=== PATIENT | female | born 1980 | race Caucasian/White ===

== ENCOUNTER 2020-08-01 14:31 | Emergency (ER) | payer OTHER ==
[2020-08-01 14:47] VITALS: BMI 26.2
[2020-08-01] MEDS ORDERED: FAMOTIDINE 20 MG/50 ML IVPB 20 MG/50 ML MG IVPB ONE ×2 (15:26→16:11)
[2020-08-01] MEDS ORDERED: SODIUM CHLORIDE 1,000 ML IV STA (15:26)
[2020-08-01] MEDS ORDERED: ONDANSETRON 4 MG/2 ML VIAL IVPUSH ONE (15:27)
--- NOTE | 2020-08-01 15:38 | PDOC ---
History of Present Illness - General Chief Complaint: Pain Stated Complaint: 3 MONTH PA/FALL Time Seen by Provider: 08/01/20 15:19 History Source: Patient Exam Limitations: No Limitations - History of Present Illness Initial Comments: 08/01/20 15:33 Patient is a 40-year-old female with no past medical history who presents to the ED with complaint of epigastric abdominal pain after a fall today. The patient states she fell on the ground while walking a dog. She did not hit her abdomen on anything.. She also states that she took a test this morning after not having a period since April 26, 2020 and found that that she was . She states she has not had any vaginal bleeding or pelvic pain. She denies any fevers or chills. She has not taken anything for symptoms. She was concerned about the so she came to the ED for evaluation. She denies hitting her head or any LOC. She states she is allergic to penicillin. Past History - Medical History Allergies/Adverse Reactions: Allergies Allergy/AdvReac Type Severity Reaction Status Date / Time Penicillins Allergy Verified 08/01/20 14:47 COPD: No - Reproductive History Is Patient Now?: Yes - Psycho-Social/Smoking History Smoking History: Never smoked Review of Systems - Review of Systems Comments:: 08/01/20 15:36 - Review of Systems Able to Perform ROS?: Yes Constitutional: No: Fever, Chills, Loss of Appetite, Night Sweats, Weakness HEENTM: No: Eye Pain, Vision changes, Ear Pain, Throat Pain, Throat Swelling, Mouth Pain, Difficulty Swallowing Respiratory: No: Cough, Shortness of Breath, Wheezing, Sputum Production Cardiac (ROS): No: Chest Pain, Chest Tightness, Palpitations, Irregular Heart Beat, Edema ABD/GI: No: Nausea, Vomiting, Diarrhea; positive: Epigastric abdominal pain, newly diagnosed LMP 04/26/2020 : No Dysuria, No Hematuria, No Frequency, No Urgency, No Vaginal Discharge/Pain, No Penile Discharge/Pain Musculoskeletal: No: Muscle Pain, Back Pain, Joint Pain, Muscle Weakness, Neck Pain Integumentary: No: Lesions, Rash Neurological: No: Headache, Numbness, Tingling, Weakness, Speech Difficulties *Physical Exam - Vital Signs Last Vital Signs Temp Pulse Resp BP Pulse Ox 87 18 123/82 100 08/01/20 14:45 08/01/20 14:45 08/01/20 14:45 08/01/20 14:45 - Physical Exam 08/01/20 15:37 - Physical Exam General Appearance: Nourished, Appropriately Dressed, No Distress HEENT: EOMI, Normal Voice, Hearing Grossly Normal Neck: Supple, No Lymphadenopathy (R), No Lymphadenopathy (L), No Rigidity, No Decreased range of motion Respiratory/Chest: Lungs Clear, Normal Breath Sounds. No Respiratory Distress, No Accessory Muscle Use Cardiovascular: Regular Rhythm, Regular Rate, S1, S2 Gastrointestinal/Abdominal: Normal Bowel Sounds, Soft. Moderate epigastric abdominal tenderness to palpation. Negative Estrada sign. No lower abdominal tenderness or pelvic tenderness to palpation. No rebound/guarding/rigidity. Abdomen nontympanitic. No CVA tenderness bilaterally. Musculoskeletal: Normal Inspection. No Decreased Range of Motion Extremity: Normal Capillary Refill, Normal Inspection Integumentary: Normal Color, Dry. No Rash Neurologic: maid housekeeper II-XII NML intact, Fully Oriented, Alert, Normal Mood/Affect, Normal Response ED Treatment Course - RADIOLOGY Radiology Studies Ordered: Category Date Time Status TRANSVAGINAL US PREG [US] Stat Ultrasound 08/01/20 15:27 Ordered Medical Decision Making - Medical Decision Making 08/01/20 15:38 Assessment: Patient is a 40-year-old female with epigastric abdominal pain. The patient newly found out that she was this morning. Plan: -Saline lock and labs ordered -Pepcid and Zofran ordered -Transvaginal ultrasound ordered -Will reassess 08/01/20 16:24 Pt pending US and lab work results. The patient is endorsed to [facility] for further evaluation and treatment. Pt stable a time of endorsement. Discharge - Discharge Information Problems reviewed: Yes Clinical Impression/Diagnosis: Epigastric abdominal pain - Follow up/Referral - Patient Discharge Instructions - Post Discharge Activity
--- NOTE | 2020-08-01 16:36 | PDOC ---
*Physical Exam - Vital Signs Last Vital Signs Temp Pulse Resp BP Pulse Ox 87 18 123/82 100 08/01/20 14:45 08/01/20 14:45 08/01/20 14:45 08/01/20 14:45 - Physical Exam General Appearance: Yes: Appropriately Dressed. No: Apparent Distress HEENT: positive: Normal ENT Inspection Respiratory/Chest: positive: Lungs Clear, Normal Breath Sounds. negative: Respiratory Distress, Accessory Muscle Use Cardiovascular: positive: Regular Rhythm, Regular Rate. negative: Edema, JVD, Murmur Gastrointestinal/Abdominal: positive: Normal Bowel Sounds, Soft. negative: Tender ED Treatment Course - LABORATORY CBC & Chemistry Diagram: 08/01/20 16:30 08/01/20 16:30 - Medications Given in the ED: ED Medications Discontinued Medications Generic Name Dose Route Start Last Admin Trade Name Freq PRN Reason Stop Dose Admin Sodium Chloride 1,000 mls @ 1,000 mls/hr 08/01/20 15:26 08/01/20 16:34 Normal Saline - IV 08/01/20 16:25 1,000 mls/hr ASDIR STA Administration Famotidine/Sodium Chloride 20 mg in 50 mls @ 100 mls/hr 08/01/20 15:26 08/01/20 16:34 Pepcid 20 Mg Premixed Ivpb - IVPB 08/01/20 15:55 100 mls/hr ONCE ONE Administration Ondansetron HCl 4 mg 08/01/20 15:27 08/01/20 16:34 Zofran Injection IVPUSH 08/01/20 15:28 4 mg ONCE ONE Administration ED Progress Note - Progress Note Progress Note: 08/01/20 16:36 Received patient from FLORESITA Campo. Briefly this a 40-year-old woman with positive home test who presents emergency department for evaluation of epigastric pain status post trip and fall earlier today. Laboratory testing and ultrasound read are pending at this time Disposition pending results of testing. Medical Decision Making - Medical Decision Making 08/01/20 17:15 Ultrasound shows no intrauterine . Questionable early , ectopic or recent miscarriage. 08/01/20 18:06 Laboratory Tests 08/01/20 08/01/20 08/01/20 16:30 16:30 16:30 WBC 7.0 RBC 4.86 Hgb 15.0 Hct 43.3 MCV 89.1 MCH 30.8 MCHC 34.6 RDW 13.1 Plt Count 151 MPV 9.5 Absolute Neuts (auto) 4.0 Neutrophils % 57.0 Lymphocytes % 35.4 Monocytes % 5.4 Eosinophils % 1.7 Basophils % 0.5 Nucleated RBC % 0 Sodium 140 Potassium 3.7 Chloride 105 Carbon Dioxide 29 Anion Gap 6 L BUN 13.7 Creatinine 0.7 Est GFR (CKD-EPI)AfAm 126.49 Est GFR (CKD-EPI)NonAf 109.14 Random Glucose 88 Calcium 9.5 Total Bilirubin 0.4 AST 53 H ALT 82 H Alkaline Phosphatase 92 Total Protein 8.0 Albumin 4.3 Lipase 93 Beta HCG, Quant 1.9 Urine Color Yellow Urine Appearance Turbid Urine pH 6.0 Ur Specific [place] 1.020 Urine Protein Negative Urine Glucose (UA) Negative Urine Ketones Negative Urine Blood Negative Urine Nitrite Negative Urine Bilirubin Negative Urine Urobilinogen 0.2 Ur Leukocyte Esterase 2+ H Urine RBC (Auto) 41.6 Urine Casts (Auto) 6 U Pathogenic Cast Auto 0 U Epithel Cells (Auto) >36 U Sm Round Cell (Auto) Negative Urine Bacteria (Auto) 1079 Discharge home I discussed the physical exam findings, ancillary test results and final diagnoses with the patient. I answered all of the patient's questions. The patient was satisfied with the care received and felt comfortable with the discharge plan and treatment plan. The patient will call their primary care p hysician within 24 hours to arrange follow-up and will return to the Emergency Department with any new, persistent or worsening symptoms. Portions of this note have been documented using voice recognition software. As a result, errors may occur in the velvet weaver process. Effort has been made to correct all grammatical and velvet weaver error, but some may have been missed which may produce sporadic inaccurate velvet weaver or nonsensical phrases. Discharge - Discharge Information Problems reviewed: Yes Clinical Impression/Diagnosis: UTI (urinary tract infection) Qualifiers: Urinary tract infection type: acute cystitis Hematuria presence: without hematuria Qualified Code(s): N30.00 - Acute cystitis without hematuria Condition: Stable Disposition: HOME - Admission No - Additional Discharge Information Prescriptions: Nitrofurantoin Monohyd/M-Cryst [Macrobid -] 100 mg PO BID #14 capsule - Follow up/Referral - Patient Discharge Instructions Additional Instructions: Rest, drink lots of fluids: Teas, water, soups Avoid contact with others until fevers and symptoms resolved Lots of handwashing and good hygiene Continue [id number] medications for symptomatic relief Tylenol or Motrin for fever and pain Continue all of antibiotics until completed Followup with private physician in one week for repeat urinalysis/reevaluation Return to emergency department for worsened symptoms, fevers, dehydration Descaustine, rishi muchos lquidos: Ts, agua, sopas Evite el contacto con otros hasta que las fiebres y los sntomas se resuelvan Un montn de lavado de lien y buena higiene Contine los medicamentos sin receta para el alivio sintomtico Tylenol o Motrin para la fiebre y el dolor Continuar todos los antibiticos hasta completarse Seguimiento con mdico privado en steve semana para repetir anlisis de orina / reevaluacin Volver al servicio de urgencias por sntomas empeorados, fiebres, deshidratacin - Post Discharge Activity
[2020-08-01 16:59] LABS: BASO % 0.5 % (0-2.0); EOS % 1.7 % (0-4.5); HEMATOCRIT 43.3 % (32.4-45.2); LYMPH % 35.4 % (8-40); MCH 30.8 pg (25.7-33.7); MCHC 34.6 g/dl (32.0-36.0); MEAN CELL VOLUME 89.1 fl (80-96); MEAN PLT VOLUME 9.5 fl (7.5-11.1); MONO % 5.4 % (3.8-10.2); PLATELET COUNT 151 K/MM3 (134-434); RBC 4.86 M/mm3 (3.60-5.2); RDW 13.1 % (11.6-15.6)
[2020-08-01 17:04] LABS: EPI CELLS >36 /uL (0-25.1); HYALINE CASTS 6 /uL (0-3.1); URINE APPEARANCE TURBID; URINE BACTERIA 1079 /uL (0-1359); URINE BILIRUBIN NEGATIVE (NEGATIVE); URINE COLOR YELLOW; URINE GLUCOSE (UA) NEGATIVE (NEGATIVE); URINE KETONE NEGATIVE (NEGATIVE); URINE LEUK ESTERASE 2+ (NEGATIVE); URINE NITRITE NEGATIVE (NEGATIVE); URINE PROTEIN NEGATIVE (NEGATIVE); URINE UROBILINOGEN 0.2 mg/dL (0.2-1.0); URINE WBC 39 /uL (0-25.8)
[2020-08-01 17:29] LABS: ALBUMIN 4.3 g/dl (3.4-5.0); BILIRUBIN,TOTAL 0.4 mg/dL (0.2-1); BLOOD UREA NITROGEN 13.7 mg/dL (7-18); CALCIUM 9.5 mg/dL (8.5-10.1); CREATININE 0.7 mg/dL (0.55-1.3); POTASSIUM 3.7 mmol/L (3.5-5.1)
[2020-08-01 17:49] LABS: URINE RBC 41.6 /uL (0-23.9)
[2020-08-01 20:33] VITALS: BP 119/75; PULSE 84
--- NOTE | 2020-08-05 10:44 | EKG ---
Test Reason : Blood Pressure : / mmHG Vent. Rate : 069 BPM Atrial Rate : 069 BPM P-R Int : 158 ms QRS Dur : 090 ms QT Int : 400 ms P-R-T Axes : 053 073 054 degrees QTc Int : 428 ms NORMAL SINUS RHYTHM NORMAL ECG NO PREVIOUS ECGS AVAILABLE Confirmed by MD RANJIT, AMARIS ([id number]) on 08/05/2020 10:44:16 AM Referred By: Confirmed By:AMARIS CHURCH MD
== END 2020-08-01 19:15 | disposition home or self-care (01) ==
LOC: JER 14:31
PROC: 3E033NZ Introduction of Analgesics, Hypnotics, Sedatives into Peripheral Vein, Percutaneous Approach (ICD-10-PCS; principal; 2020-08-01)
PROC: 3E033GC Introduction of Other Therapeutic Substance into Peripheral Vein, Percutaneous Approach (ICD-10-PCS; 2020-08-01)
PROC: 3E0337Z Introduction of Electrolytic and Water Balance Substance into Peripheral Vein, Percutaneous Approach (ICD-10-PCS; 2020-08-01)
DX: R10.13 Epigastric pain (principal)
CPT/HCPCS: 36415; 76817-TC; 80053; 81003; 83690; 84702; 85025; 87086; 93005; 93010; 99285-25